=== PATIENT | female | born 1995 ===

== ENCOUNTER 2018-12-01 08:09 | Emergency (ER) | payer BC ==
[2018-12-01] MEDS ORDERED: Sodium Chloride 0.9% 1,000 ML IV STA (08:38)
[2018-12-01] MEDS ORDERED: Famotidine 20mg/50ml 20 MG/50 ML BAG IVPB STA (08:45)
[2018-12-01 08:46] LABS: HEMOGLOBIN 13.2 g/dL (12.0-16.0); MEAN CELL VOLUME 91.4 fl (80.0-105.0); MEAN CORPUSCULAR HGB CONC 32.8 g/dl (31.0-37.0); MEAN PLATELET VOLUME 10.1 fl (7.0-11.0); RBC 4.4 10^6/uL (3.5-6.1); RED CELL DISTRIBUTION WIDTH 13.7 % (11.5-14.5); WHITE BLOOD COUNT 7.9 10^3/uL (4.5-11.0)
[2018-12-01 08:48] LABS: PH,URINE 6.5 (4.7-8.0); URINE BILIRUBIN NEGATIVE (NEGATIVE); URINE BLOOD TRACE-LYSED (NEGATIVE); URINE GLUCOSE (UA) NEGATIVE (NEGATIVE); URINE LEUKOCYTE ESTERASE NEGATIVE Leu/uL (NEGATIVE); URINE PROTEIN NEGATIVE mg/dL (<30 mg/dL); URINE UROBILINOGEN 0.2 E.U./dL (<1 E.U./dL)
[2018-12-01 08:52] LABS: URINE COLOR YELLOW (YELLOW)
[2018-12-01 08:59] LABS: ALB/GLOB RATIO 1.3 (1.1-1.8); ALBUMIN 4.7 g/dL (3.0-4.8); ALT/SGPT 14 U/L (7-56); AST/SGOT 29 U/L (14-36); BLOOD UREA NITROGEN 8 mg/dL (7-21); CALCIUM 10.3 mg/dL (8.4-10.5); GFR NON-AFRICAN AMERICAN > 60; LIPASE 46 U/L (23-300)
--- NOTE | 2018-12-01 09:11 | ED PDOC ---
Arrival/HPI - General Chief Complaint: Abdominal Pain Time Seen by Provider: 12/01/18 08:37 Historian: Patient - History of Present Illness Narrative History of Present Illness (Text): 12/01/18 09:09 A 23 year old female presents to the emergency department complaining of dull and burning epigastric pain associated with nausea, vomiting, diarrhea for 2 months. 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 States she has been taking Mylanta for some time. Patient notes also experiencing shortness of breath, however denies any fever, chest pain, or any other complaints at this time. Past Medical History - Provider Review Nursing Documentation Reviewed: Yes - Infectious Disease Hx of Infectious Diseases: None - Psychiatric Hx Substance Use: No - Anesthesia Hx Anesthesia: No Hx Anesthesia Reactions: No Hx Malignant Hyperthermia: No Family/Social History - Physician Review Nursing Documentation Reviewed: Yes Family/Social History: No Known Family HX Smoking Status: Light Smoker < 10 Cigarettes Daily Hx Alcohol Use: No Hx Substance Use: No Allergies/Home Meds Allergies/Adverse Reactions: Allergies No Known Allergies Allergy (Verified 12/01/18 08:20) Review of Systems - Physician Review All systems were reviewed & negative as marked: Yes - Review of Systems Constitutional: absent: Fevers Respiratory: SOB Cardiovascular: absent: Chest Pain Gastrointestinal: Abdominal Pain (epigastric pain), Diarrhea, Nausea, Vomiting Physical Exam Vital Signs Reviewed: Yes Vital Signs Temp Pulse Resp BP Pulse Ox 12/01/18 08:17 98.7 F 69 18 119/77 100 Temperature: Afebrile Blood Pressure: Normal Pulse: Regular Respiratory Rate: Normal Appearance: Positive for: Well-Appearing, Non-Toxic, Comfortable Pain Distress: None Mental Status: Positive for: Alert and Oriented X 3 - Systems Exam Head: Present: Atraumatic, Normocephalic Pupils: Present: PERRL Extroacular Muscles: Present: EOMI Conjunctiva: Present: Normal Mouth: Present: Moist Mucous Membranes Neck: Present: Normal Range of Motion Respiratory/Chest: Present: Clear to Auscultation, Good Air Exchange. No: Respiratory Distress, Accessory Muscle Use Cardiovascular: Present: Regular Rate and Rhythm, Normal S1, S2. No: Murmurs Abdomen: Present: Tenderness (mid-epigastric tenderness). No: Distention, Peritoneal Signs, Rebound, Guarding Back: Present: Normal Inspection Upper Extremity: Present: Normal Inspection. No: Cyanosis, Edema Lower Extremity: Present: Normal Inspection. No: Edema Neurological: Present: GCS=15, CN II-XII Intact, Speech Normal Skin: Present: Warm, Dry, Normal Color. No: Rashes Psychiatric: Present: Alert, Oriented x 3, Normal Insight, Normal Concentration Medical Decision Making ED Course and Treatment: 12/01/18 09:12 Impression: 23 year female with epigastric pain associated with nausea, vomiting, diarrhea, as well as shortness of breath. Differential Diagnosis included but are not limited to: Gastroenteritis Plan: -- Labs -- Pepcid -- IV Fluids -- POC Urine -- Reassess and disposition Progress Notes: 12/01/18 09:42 Patient states she is feeling much better and is ready to be discharged home. - Lab Interpretations Lab Results: Total Bilirubin 1.0 mg/dL (0.2-1.3) 12/01/18 08:25 AST 29 U/L (14-36) 12/01/18 08:25 ALT 14 U/L (7-56) 12/01/18 08:25 Alkaline Phosphatase 67 U/L (38-126) 12/01/18 08:25 Total Protein 8.2 g/dL (5.8-8.3) 12/01/18 08:25 Albumin 4.7 g/dL (3.0-4.8) 12/01/18 08:25 Globulin 3.5 gm/dL 12/01/18 08:25 Albumin/Globulin Ratio 1.3 (1.1-1.8) 12/01/18 08:25 Amylase 45 U/L (35-125) 12/01/18 08:25 Lipase 46 U/L (23-300) 12/01/18 08:25 Urine Color Yellow (YELLOW) 12/01/18 08:25 Urine Appearance Clear (CLEAR) 12/01/18 08:25 Urine pH 6.5 (4.7-8.0) 12/01/18 08:25 Ur Specific [place] <= 1.005 (1.005-1.035) 12/01/18 08:25 Urine Protein Negative mg/dL (<30 mg/dL) 12/01/18 08:25 Urine Glucose (UA) Negative mg/dL (NEGATIVE) 12/01/18 08:25 Urine Ketones Negative mg/dL (NEGATIVE) 12/01/18 08:25 Urine Blood Trace-lysed (NEGATIVE) H 12/01/18 08:25 Urine Nitrate Negative (NEGATIVE) 12/01/18 08:25 Urine Bilirubin Negative (NEGATIVE) 12/01/18 08:25 Urine Urobilinogen 0.2 E.U./dL (<1 E.U./dL) 12/01/18 08:25 Ur Leukocyte Esterase Negative [place]/uL (NEGATIVE) 12/01/18 08:25 - Medication Orders Current Medication Orders: Sodium Chloride (Sodium Chloride 0.9%) 1,000 mls @ 999 mls/hr IV .Q1H1M STA Stop: 12/01/18 09:38 Last Admin: 12/01/18 08:54 Dose: 999 mls/hr eMAR Start Stop Document 12/01/18 08:54 GMI (Rec: 12/01/18 08:55 GMI [id number]) Intravenous Solution Start Date 12/01/18 Start Time 08:55 End Date 12/01/18 End time 10:00 Total Infusion Time 65 Famotidine (Pepcid 20mg/50ml Premix) 20 mg in 50 mls @ 100 mls/hr IVPB STAT STA Stop: 12/01/18 09:14 Last Admin: 12/01/18 08:53 Dose: 100 mls/hr eMAR Start Stop Document 12/01/18 08:53 GMI (Rec: 12/01/18 08:54 GMI [id number]) Intravenous Solution Start Date 12/01/18 Start Time 08:54 End Date 12/01/18 End time 09:30 Total Infusion Time 36 - Scribe Statement The provider has reviewed the documentation as recorded by the Kashif Lloyd Provider Scribe Attestation: All medical record entries made by the Scribe were at my direction and personally dictated by me. I have reviewed the chart and agree that the record accurately reflects my personal performance of the history, physical exam, medical decision making, and the department course for this patient. I have also personally directed, reviewed, and agree with the discharge instructions and disposition. Disposition/Present on Arrival - Present on Arrival Any Indicators Present on Arrival: No History of DVT/PE: No History of Uncontrolled Diabetes: No Urinary Catheter: No History of Decub. Ulcer: No History Surgical Site Infection Following: None - Disposition Have Diagnosis and Disposition been Completed?: Yes Diagnosis: Gastroenteritis Disposition: HOME/ ROUTINE Disposition Time: 10:17 Condition: GOOD Discharge Instructions (ExitCare): Viral Gastroenteritis Additional Instructions: Take pepcid daily and follow up with medicine clinic or your pcp. Prescriptions: Famotidine [Pepcid] 40 mg PO DAILY #30 tablet Referrals: [facility] at [facility] [Outside] - Follow up with primary [facility] at [facility] [Outside] - Follow up with primary [facility] [Outside] - Follow up with primary Solomon Aguirre [Primary Care Provider] - Follow up with primary Forms: [facility] (Turkish), WORK NOTE
[2018-12-01 09:12] LABS: URINE APPEARANCE SL CLOUDY (CLEAR)
[2018-12-01 09:13] LABS: URINE BACTERIA MOD /hpf
[2018-12-01 10:17] VITALS: BP 119/73; PULSE 68; RESP 19; TEMP 98; O2SAT 99
== END 2018-12-01 10:16 | disposition home or self-care (01) ==
LOC: ED 08:09
DX: K52.9 Noninfective gastroenteritis and colitis, unspecified (principal); F17.210 Nicotine dependence, cigarettes, uncomplicated
CPT/HCPCS: 80053; 81001; 81025; 82150; 83690; 85027; 96365; 99283; J7030